=== PATIENT | female | born 1990 | race Caucasian/White ===

== ENCOUNTER 2016-10-16 07:01 | Inpatient (IN) | payer BC, MEDICARE ==
[~2016-10-16] VITALS: Ht 157.5 cm; Wt 68.9 kg
[2016-10-16 08:29] LABS: HEMOGLOBIN 12.6 gm/dl (12.3-15.3); RED BLOOD COUNT 4.05 M/UL (4.00-5.10)
[2016-10-17 04:24] LABS: HEMOGLOBIN 10.2 gm/dl (12.3-15.3)
[2016-10-18] MEDS ORDERED: COLACE 100MG C100 MG PO (10:29)
== END 2016-10-18 16:22 | disposition home or self-care (01) | DRG 775 ==
LOC: GENOP 07:01 → OB 08:13
PROVIDERS: Obstetrics & Gynecology; ADMIT Obstetrics & Gynecology
PROC: 10E0XZZ Delivery of Products of Conception, External Approach (ICD-10-PCS; principal; 2016-10-16)
DX: O80 Encounter for full-term uncomplicated delivery (principal); Z3A.39 39 weeks gestation of pregnancy; Z37.0 Single live birth; L50.8 Other urticaria; Z87.440 Personal history of urinary (tract) infections; Z91.010 Allergy to peanuts; Z91.018 Allergy to other foods; Z28.21 Immunization not carried out because of patient refusal
CPT/HCPCS: 36415; 51702; 81001; 83518; 85014; 85018; 85025; J2300; J2590; J2795; J3010; J7120

== ENCOUNTER 2021-07-28 05:25 | Inpatient (IN) | payer BC, OTHER ==
[~2021-07-28] VITALS: Ht 157.5 cm; Wt 71.2 kg
[~2021-07-28 05:25] MED LIST: COLACE 100MG C100 MG PO
[2021-07-28 06:17] LABS: HEMOGLOBIN 12.3 gm/dl (12.3-15.3); RED BLOOD COUNT 3.96 M/UL (4.00-5.10); WHITE BLOOD COUNT 12.1 K/UL (4.5-11.0)
[2021-07-28] MEDS ORDERED: COLACE 100MG C100 MG PO (09:03)
[2021-07-28] MEDS ORDERED: IBUPROFEN800 MG PO (09:03)
[2021-07-28] MEDS ORDERED: HYDROCODON-ACE1 EAC4 PO (09:03)
[2021-07-29 04:15] LABS: HEMOGLOBIN 11.2 gm/dl (12.3-15.3)
== END 2021-07-29 15:38 | disposition home or self-care (01) | DRG 807 ==
LOC: GENOP 05:25 → OB 05:49
PROVIDERS: ADMIT Obstetrics & Gynecology
PROC: 10E0XZZ Delivery of Products of Conception, External Approach (ICD-10-PCS; principal; 2021-07-28)
DX: O24.420 Gestational diabetes mellitus in childbirth, diet controlled (principal); Z37.0 Single live birth; Z3A.38 38 weeks gestation of pregnancy; Z91.010 Allergy to peanuts; Z98.890 Other specified postprocedural states; Z83.3 Family history of diabetes mellitus; Z81.8 Family history of other mental and behavioral disorders; Z90.89 Acquired absence of other organs; Z91.02 Food additives allergy status
CPT/HCPCS: 36415; 81001; 82800; 82962; 85014; 85018; 85025; J2590; J3010; J7120